=== PATIENT | female | born 1990 | race Caucasian/White ===

== ENCOUNTER 2018-10-30 16:17 | Inpatient (IN) | payer BC ==
[~2018-10-30] VITALS: Ht 160.1 cm; Wt 77.3 kg
[2018-11-11] VITALS (55 sets, daily range): BP systolic 89–148; BP diastolic 7–90; PULSE 72–112; TEMP 97.6–98.6
--- NOTE | 2018-11-11 07:20 | NUR ---
Patient ambulatory to [facility]5 with significant other, patient changed into gown, FHR/TOCO monitors placed and explained. Patient denies regular contractions or vaginal bleeding. Patient states she has had excess discharge. 0725: SVE-1-2/70/-2 and amniotest negative. 0730: IV placed in left hand, blood drawn and sent to lab, and LR infusing. Assessment completed and consents signed and gone over/ packet given. Discussed plan of care and patient verbalizes understanding.
[2018-11-11] MEDS ORDERED: ZANTAC 7575 MG PO (07:44)
[2018-11-11] MEDS ORDERED: PRENATAL MVI (07:45)
[2018-11-11 08:14] LABS: BASO % 0.4 % (0.0-2.0); EOS # 0.1 (0.0-0.7); EOS % 1.3 % (0-4.0); GRAN # 5.3 (1.4-6.5); GRAN % 74.1 % (42.2-75.2); HEMOGLOBIN 10.5 g/dl (12.5-16.0); LYMPH # 1.3 (1.2-3.4); MEAN CELL VOLUME 81 fl (80.0-100.0); MEAN CORPUSCULAR HEMOGLOBIN 27 pg (27.0-31.0); MEAN CORPUSCULAR HGB CONC 33 g/dl (33.0-37.0); MEAN PLATELET VOLUME 10.1 fl (7.4-10.4); MONO # 0.4 (0.1-0.6); MONO % 5.5 % (1.7-9.3); PLATELET COUNT 313 K/mm3 (130-400); RED BLOOD COUNT 3.95 M/mm3 (4.10-5.30); REDCELL DISTRIBUTION WIDTH-CV 14.2 % (11.5-14.5)
--- NOTE | 2018-11-11 12:55 | NUR ---
Dr Nunes at bedside evaluating patient and FHR strip. 1258: SVE per physician /-2 and AROM at this time and clear fluid noted. Patient tolerates well and plan of care discussed. Will continue to monitor.
--- NOTE | 2018-11-11 15:22 | NUR ---
Difficulty tracing FHR, FHR monitor adjusted and patient repostioned. 1530: Patient off monitors to void.
--- NOTE | 2018-11-11 15:45 | NUR ---
Patient requesting epidural at this time. 1550: Areli [employer] PROMOTION EDUCATOR called and notified.
--- NOTE | 2018-11-11 16:05 | NUR ---
Patient sits up at the edge of bed for placement of epidural. Areli PRINTER MACHINE at bedside for procedure. FHR difficult to trace due to maternal position. 1615: Single shot at this time and patient tolerates well. 1620: Patient repositioned wedged right. Plan of care dicussed.
--- NOTE | 2018-11-11 16:45 | NUR ---
Valadez catheter placed at this time and patient tolerates well. SVE-4/80/-2 1650: FHR baseline 120bpm and decreasing to 115 bpm for approx. 2 minutes. Patient repositioned and FHR returns to baseline with moderate variability. 1725: Dr. Ceballos at nurses station and reviews strip and states that she thinks FHR baseline is 120-125bpm and FHR showing accelerations. 1732: Variable deceleration noted and decreasing to 100bpm for 40 seconds and returns to baseline. 1735: FHR decreasing to 100-110bpm for 40 seconds and returns to baseline. 1740: Dr. Nunes at bedside and reviewing FHR strip and assessing patient. 1745: SVE per physician-4/80/-2 bloody show. Orders at this time to increase pitocin and continue to increase to 30mU. Patient repsitioned wedged right with peanut ball. Dr Nunes reviews strip and states she is okay with strip and believes that FHR basline is 120-125bpm and accelerations tracing.
--- NOTE | 2018-11-11 19:05 | NUR ---
HAVING INCREASED DISCOMFORT WITH CTXS. PUSHED BUTTON. HOB ELEVATED
--- NOTE | 2018-11-11 20:10 | NUR ---
DR COSTELLO HERE. SVE 4CM .2015- C/S DISCUSSED WITH PT BY DR COSTELLO. SPOUSE AND PT IN AGREEMENT FOR C/S. ABD PREP AND WASH DONE. 2020 TO OR PER BED SPOUSE TO ATTEND
--- NOTE | 2018-11-11 22:30 | NUR ---
N/V AFTER ICE CHIPS. ABDOMINAL ITCHING PRESENT. DECLINES BENADRYL
[2018-11-12 00:30] VITALS: BP 123/85; PULSE 99
[2018-11-13 15:03] LABS: BASO % 0.3 % (0.0-2.0); EOS % 0.2 % (0-4.0); GRAN # 11.3 (1.4-6.5); GRAN % 86.3 % (42.2-75.2); HEMATOCRIT 22.7 % (37.0-47.0); HEMOGLOBIN 7.6 g/dl (12.5-16.0); LYMPH # 1.2 (1.2-3.4); LYMPH % 9.4 % (20.0-51.0); MEAN CELL VOLUME 81 fl (80.0-100.0); MEAN CORPUSCULAR HEMOGLOBIN 27 pg (27.0-31.0); MEAN CORPUSCULAR HGB CONC 34 g/dl (33.0-37.0); MONO # 0.4 (0.1-0.6); MONO % 3.3 % (1.7-9.3); PLATELET COUNT 257 K/mm3 (130-400); RED BLOOD COUNT 2.81 M/mm3 (4.10-5.30); REDCELL DISTRIBUTION WIDTH-CV 14.2 % (11.5-14.5)
--- NOTE | 2018-11-13 16:00 | NUR ---
Pt has red, raised rash to abdomen where betadine and prep/tape was. Pt denies itching, requests benadry. Dr Nicole called and notified. Order received. See EMAR.
--- NOTE | 2018-11-13 17:00 | NUR ---
Discharge instructions given, pt verbalized understanding. No further questions. Bands matched and hugs tag removed.
== END 2018-11-13 17:55 | disposition home or self-care (01) | DRG 783 ==
LOC: LDR 11-11 06:20 → OB 11-11 06:58 → LDR 11-11 06:58 → OB 11-11 14:26
PROVIDERS: ADMIT Obstetrics & Gynecology
PROC: 10D00Z1 Extraction of Products of Conception, Low, Open Approach (ICD-10-PCS; principal; 2018-11-11)
PROC: 0UB60ZZ Excision of Left Fallopian Tube, Open Approach (ICD-10-PCS; 2018-11-11)
PROC: 3E033VJ Introduction of Other Hormone into Peripheral Vein, Percutaneous Approach (ICD-10-PCS; 2018-11-11)
DX: O48.0 Post-term pregnancy (principal); O45.93 Premature separation of placenta, unspecified, third trimester; O76 Abnormality in fetal heart rate and rhythm complicating labor and delivery; Z3A.40 40 weeks gestation of pregnancy; Z37.0 Single live birth; O36.63X0 Maternal care for excessive fetal growth, third trimester, not applicable or unspecified; N83.8 Other noninflammatory disorders of ovary, fallopian tube and broad ligament; O69.81X0 Labor and delivery complicated by cord around neck, without compression, not applicable or unspecified
CPT/HCPCS: J0690; J1885; J2175; J2250; J2370; J2405; J2590; J2795; J7120